=== PATIENT | female | born 1975 | race African-American/Black ===

== ENCOUNTER 2018-01-23 20:33 | Emergency (ER) | payer OTHER ==
[~2018-01-23] VITALS: Ht 167.6 cm; Wt 57.0 kg
[2018-01-23] MEDS ORDERED: SODIUM CHLORIDE 0.9% 1,000 ML IV ONE (23:08)
[2018-01-23] MEDS ORDERED: ONDANSETRON HCL 4MG/2ML VIAL IV STA (23:08)
[2018-01-23 23:57] LABS: BASOPHILS % 0.1 % (0.0-2.0); HEMATOCRIT. 37.3 % (36.0-48.0); LYMPHOCYTES % 8.7 % (20.0-50.0); MEAN CORPUSCULAR HEMOGLOBIN 31.4 pg (28.0-32.0); MEAN CORPUSCULAR VOLUME 90.4 fL (81.0-99.0); MONOCYTES % 4.7 % (2.0-8.0); NEUTROPHILS % 86.5 % (40.0-76.0); PLATELET 268 x1000/uL (130-400); RED BLOOD CELL COUNT 4.13 mill/uL (4.2-5.4)
[2018-01-24 00:02] LABS: CHLORIDE 108 mEq/L (98-107); HCG SCREEN NEGATIVE
[2018-01-24] MEDS ORDERED: ONDANSETRON HCL 4MG/2ML VIAL IV NR (00:51)
[2018-01-24 01:02] LABS: CLARITY URINE CLEAR (CLEAR); COLOR URINE ORANGE (YELLOW); KETONES URINE 4+ (NEGATIVE); LEUKOCYTE ESTERASE URINE NEGATIVE (NEGATIVE); NITRITE URINE NEGATIVE (NEGATIVE); OCCULT BLOOD URINE 3+ (NEGATIVE); PROTEIN URINE NEGATIVE (NEGATIVE); SPECIFIC GRAVITY URINE 1.022 (1.005-1.030); UROBILINOGEN URINE 0.2 E.U./dL (0.2-1.0)
[2018-01-24 01:13] LABS: *AMPHETAMINES SCREEN URINE NEGATIVE (NEGATIVE); *BARBITURATES SCREEN URINE NEGATIVE (NEGATIVE); *BENZODIAZEPINES SCREEN URINE NEGATIVE (NEGATIVE); *COCAINE SCREEN URINE NEGATIVE (NEGATIVE); METHADONE URINE SCREEN NEGATIVE (NEGATIVE); OPIATES URINE SCREEN NEGATIVE (NEGATIVE)
[2018-01-24 01:14] LABS: CANNABINOID URINE SCREEN NEGATIVE (NEGATIVE); PHENCYCLIDINE URINE SCREEN NEGATIVE (NEGATIVE)
[2018-01-24] MEDS: SODIUM CHLORIDE 0.9% 1,000 ML IV NR ×2 (01:28→01:40)
[2018-01-24 05:19] VITALS: BP 125/69
== END 2018-01-24 05:20 | disposition home or self-care (01) ==
LOC: ER 21:00
DX: K29.00 Acute gastritis without bleeding (principal); N94.6 Dysmenorrhea, unspecified
CPT/HCPCS: 36415; 80053; 80305; 81003; 83690; 84703; 85025; 96361; 96374; 96376; 99285; J2405; J7030; Z7610